=== PATIENT | female | born 1995 | race Caucasian/White ===

== ENCOUNTER 2022-02-18 05:30 | Inpatient (IN) | payer BC ==
[2022-02-18] MEDS ORDERED: Citric Acid/Sodium Citrate Solution 30 ML Cup PO ONE (06:30)
[2022-02-18] MEDS ORDERED: Metoclopramide 10 MG/2 ML SDV IVPUSH ONE (06:30)
[2022-02-18] MEDS ORDERED: Citric Acid/Sodium Citrate Solution 30 ML Cup ONE (06:50)
[2022-02-18] MEDS ORDERED: Metoclopramide 10 MG/2 ML SDV ONE (06:52)
[2022-02-18] MEDS ORDERED: Morphine PF 10 MG/10 ML SDV ONE (06:54)
[2022-02-18] MEDS ORDERED: ceFAZolin 1 GM Vial ONE (06:54)
[2022-02-18] MEDS ORDERED: Ondansetron 4 MG/2 ML SDV ONE (06:54)
[2022-02-18] MEDS ORDERED: Ketorolac 30 MG/ML SDV ONE (06:54)
[2022-02-18] MEDS ORDERED: Oxytocin 10 Units/1 ML SDV ONE ×2 (06:54→06:55)
[2022-02-18] MEDS: Lactated Ringers 1,000 ML IV SCH ×2 (06:59→07:00)
[2022-02-18] MEDS ORDERED: ceFAZolin 2 GM in Sodium Chloride 0.9% 50 ML IV ONE (07:00)
[2022-02-18] MEDS ORDERED: Bupivacaine 0.5% 30 ML SDV ONE (07:10)
[2022-02-18] MEDS ORDERED: Oxytocin/Lactated Ringers 20 UNIT/1,000 ML BAG IV SCH (07:30)
[2022-02-18] MEDS ORDERED: Lactated Ringers 1,000 ML ONE (08:22)
[2022-02-18] MEDS ORDERED: diphenhydrAMINE 50 MG/ML SDV IVPUSH PRN ×2 (08:55→10:35)
[2022-02-18] MEDS ORDERED: Ondansetron 4 MG/2 ML SDV IVPUSH PRN (08:55)
[2022-02-18] MEDS ORDERED: fentaNYL 100 MCG/2 ML SDV IVPUSH PRN (08:55)
[2022-02-18] MEDS ORDERED: Meperidine 50 MG/ML Vial IVPUSH PRN (08:55)
[2022-02-18] MEDS ORDERED: Naloxone 0.4 MG/ML SDV IVPUSH PRN (10:35)
[2022-02-18] MEDS ORDERED: Ondansetron 4 MG/2 ML SDV IV PRN (10:35)
[2022-02-18] MEDS ORDERED: ePHEDrine 50 MG/ML SDV IVPUSH PRN (10:35)
[2022-02-18] MEDS ORDERED: Dextrose 5%-Lactated Ringers 1,000 ML IV SCH (10:35)
[2022-02-18] MEDS: Ibuprofen 800 MG Tab PO SCH ×2 (14:17→22:12)
[2022-02-18] MEDS: Docusate Sodium 100 MG Cap PO SCH ×2 (14:18→23:04)
[2022-02-18] MEDS: Acetaminophen/oxyCODONE 325-5 MG Tab PO PRN ×2 (21:20→22:11)
[2022-02-19] MEDS: Acetaminophen/oxyCODONE 325-5 MG Tab PO PRN ×4 (02:23→19:56)
[2022-02-19] MEDS: Ibuprofen 800 MG Tab PO SCH ×3 (06:22→22:12)
[2022-02-19] MEDS ORDERED: Simethicone 80 MG Tab.Chew PO PRN (08:52)
[2022-02-19] MEDS ORDERED: Prenatal Multivitamin with Calcium/Folic Acid/Iron Tab PO SCH (09:00)
[2022-02-19] MEDS: Docusate Sodium 100 MG Cap PO SCH ×3 (09:11→22:12)
[2022-02-20] MEDS: Acetaminophen/oxyCODONE 325-5 MG Tab PO PRN ×3 (01:31→10:08)
[2022-02-20] MEDS: Ibuprofen 800 MG Tab PO SCH (05:48)
[2022-02-20] MEDS: Docusate Sodium 100 MG Cap PO SCH (11:52)
== END 2022-02-20 11:00 | disposition home or self-care (01) | DRG 540 ==
LOC: UNDOADMOB 05:30 → JD.OB 05:30 → INTOOBSV 05:30 → OBSVTOIN 05:30
PROVIDERS: ADMIT Obstetrics & Gynecology; ATTEND Obstetrics & Gynecology
PROC: 10D00Z1 Extraction of Products of Conception, Low, Open Approach (ICD-10-PCS; principal; 2022-02-18)
DX: O64.1XX0 Obstructed labor due to breech presentation, not applicable or unspecified (principal); Z20.822 Contact with and (suspected) exposure to COVID-19; Z3A.38 38 weeks gestation of pregnancy; Z37.0 Single live birth; Z79.899 Other long term (current) drug therapy
CPT/HCPCS: 01961; 36415; 59025; 85025; 86592; 86850; 86900; 86901; 94762; A9270-GY; J0690; J1885; J2274; J2405; J2590; J2765; J3490; J7120; J7121; U0002

== ENCOUNTER 2023-06-17 11:24 | Inpatient (IN) | payer BC ==
[2023-06-17] MEDS ORDERED: Nalbuphine 10 MG/0.5 ML Syringe IVPUSH PRN (11:33)
[2023-06-17] MEDS ORDERED: Lidocaine 1% 50 ML MDV INJECT ONE (11:33)
[2023-06-17] MEDS ORDERED: Sodium Chloride 0.9% 10 ML Syringe FLUSH PRN (11:33)
[2023-06-17] MEDS ORDERED: Lactated Ringers 1,000 ML IV SCH (11:45)
[2023-06-17] MEDS ORDERED: Oxytocin/Lactated Ringers 10 UNIT/1,000 ML BAG IV SCH ×2 (11:45)
[2023-06-17 11:54] LABS: BASOPHILS ABSOLUTE AUTO 0.01 K/mm3 (0.01-0.08); BASOPHILS PERCENT AUTO 0.1 % (0.1-1.2); EOSINOPHILS PERCENT AUTO 0 (0.7-5.8); HEMATOCRIT 34.1 % (34.1-44.9); HEMOGLOBIN 11.7 gm/dl (11.2-15.7); IMMATURE GRAN ABSOLUTE AUTO 0.02 K/mm3 (0.00-0.10); IMMATURE GRAN PERCENT AUTO 0.2 % (<=1.0); LYMPHOCYTES ABSOLUTE AUTO 1.41 K/mm3 (1.18-3.74); LYMPHOCYTES PERCENT AUTO 15.1 % (19.3-51.7); MEAN CORPUSCULAR HGB CONC 34.3 g/dl (32.2-35.5); MEAN CORPUSCULAR VOLUME 90.2 fl (79.4-94.8); MONOCYTES ABSOLUTE AUTO 0.63 K/mm3 (0.24-0.36); MONOCYTES PERCENT AUTO 6.7 % (4.7-12.5); NEUTROPHILS ABSOLUTE AUTO 7.29 K/mm3 (1.56-6.13); NEUTROPHILS PERCENT AUTO 77.9 % (34.0-71.1); PLATELET COUNT,PLT 239 K/mm3 (182-369); RED BLOOD CELL COUNT 3.78 M/mm3 (3.98-5.22); WHITE BLOOD CELL COUNT,WBC 9.36 K/mm3 (3.98-10.04)
[2023-06-18] MEDS ORDERED: Lidocaine 1% 50 ML MDV INJECT PRN (03:21)
[2023-06-18] MEDS ORDERED: Benzocaine/Menthol 20%-0.5% Spray 78 GM Cannister TOP PRN (06:21)
[2023-06-18] MEDS ORDERED: Docusate Sodium 100 MG Cap PO PRN (06:21)
[2023-06-18] MEDS ORDERED: Witch Hazel Medicated Pads 40/Jar TOP PRN (06:21)
[2023-06-18] MEDS: Ibuprofen 600 MG Tab PO PRN (15:27)
[2023-06-18] MEDS: Acetaminophen 325 MG Tab PO PRN ×2 (15:28→20:05)
[2023-06-19] MEDS: Ibuprofen 600 MG Tab PO PRN (00:05)
== END 2023-06-19 09:35 | disposition home or self-care (01) | DRG 560 ==
LOC: JD.OBCHECK 11:24 → JD.OB 11:33 → OBSVTOIN 06-18 05:22 → JD.OB 06-18 05:23
PROVIDERS: ADMIT Obstetrics & Gynecology; ATTEND Obstetrics & Gynecology
PROC: 10E0XZZ Delivery of Products of Conception, External Approach (ICD-10-PCS; principal; 2023-06-18)
PROC: 10907ZC Drainage of Amniotic Fluid, Therapeutic from Products of Conception, Via Natural or Artificial Opening (ICD-10-PCS; 2023-06-18)
PROC: 3E0R3BZ Introduction of Anesthetic Agent into Spinal Canal, Percutaneous Approach (ICD-10-PCS; 2023-06-18)
PROC: 00HU33Z Insertion of Infusion Device into Spinal Canal, Percutaneous Approach (ICD-10-PCS; 2023-06-18)
PROC: 3E033VJ Introduction of Other Hormone into Peripheral Vein, Percutaneous Approach (ICD-10-PCS; 2023-06-18)
DX: O34.211 Maternal care for low transverse scar from previous cesarean delivery (principal); O48.0 Post-term pregnancy; O69.81X0 Labor and delivery complicated by cord around neck, without compression, not applicable or unspecified; Z37.0 Single live birth; Z3A.40 40 weeks gestation of pregnancy; Z79.899 Other long term (current) drug therapy; Z86.16 Personal history of COVID-19; Z98.890 Other specified postprocedural states
CPT/HCPCS: 36415; 59025; 59409; 85025; 86592; 86850; 86900; 86901; A9270-GY; J2300; J2590; J7120

== ENCOUNTER 2024-12-20 17:17 | Emergency (ER) | payer BC ==
[2024-12-20] MEDS: Lactated Ringers 1,000 ML IV ONE (18:02)
[2024-12-20 18:09] LABS: BASOPHILS PERCENT AUTO 0.7 % (0.0-1.0); EOSINOPHILS PERCENT AUTO 0.7 % (0.0-6.0); HEMATOCRIT 31.3 % (37.0-47.0); HEMOGLOBIN 10.8 gm/dl (12.0-16.0); IMMATURE GRAN ABSOLUTE AUTO 0.03 K/mm3 (0.00-0.05); LYMPHOCYTES ABSOLUTE AUTO 0.4 K/mm3 (1.0-4.8); LYMPHOCYTES PERCENT AUTO 14.7 % (24.0-44.0); MEAN CORPUSCULAR HEMOGLOBIN 31.1 pg (28.0-32.0); MEAN CORPUSCULAR HGB CONC 34.5 g/dl (32.0-36.0); MEAN CORPUSCULAR VOLUME 90.2 fl (83.0-99.0); MEAN PLATELET VOLUME 9.5 fl (9.4-12.3); MONOCYTES ABSOLUTE AUTO 0.3 K/mm3 (0.0-0.8); MONOCYTES PERCENT AUTO 8.9 % (0.0-8.0); NEUTROPHILS ABSOLUTE AUTO 2.2 K/mm3 (1.8-7.7); PLATELET COUNT,PLT 231 K/mm3 (150-400); RED BLOOD CELL COUNT 3.47 M/mm3 (4.10-5.30); WHITE BLOOD CELL COUNT,WBC 2.92 K/mm3 (3.9-11.3)
[2024-12-20 18:33] LABS: A/G RATIO 0.7 (1-2); ALBUMIN 2.7 g/dl (3.4-5.0); ANION GAP 15.7 (5-15); BILIRUBIN TOTAL 0.2 mg/dL (0.2-1.0); BUN/CREATININE RATIO 8.3 (14-18); C-REACTIVE PROTEIN 1.73 mg/dL (<0.30); CALCIUM 8.8 mg/dL (8.5-10.1); CREATININE 0.6 mg/dL (0.55-1.02); EST CRCL DRUG DOSING (CG) 113.41 mL/min; POTASSIUM,K 3.7 mEq/L (3.5-5.1); PROTEIN TOTAL,TP 6.7 g/dl (6.4-8.2)
[2024-12-20] MEDS: cefTRIAXone 2 GM in Sodium Chloride 0.9% 100 ML IV ONE (18:51)
[2024-12-20] MEDS: Sodium Chloride 0.9% 1,000 ML IV SCH (19:30)
== END 2024-12-20 20:34 | disposition home or self-care (01) ==
LOC: JD.ED 17:17
DX: O99.513 Diseases of the respiratory system complicating pregnancy, third trimester (principal); J18.9 Pneumonia, unspecified organism; O99.283 Endocrine, nutritional and metabolic diseases complicating pregnancy, third trimester; E87.1 Hypo-osmolality and hyponatremia; O99.13 Other diseases of the blood and blood-forming organs and certain disorders involving the immune mechanism complicating the puerperium; D72.819 Decreased white blood cell count, unspecified; Z79.899 Other long term (current) drug therapy; Z86.16 Personal history of COVID-19; Z3A.28 28 weeks gestation of pregnancy
CPT/HCPCS: 36415; 80053; 85025; 86140; 87428; 87651; 96361; 96365; 99284; J0696; J7030; J7120

== ENCOUNTER 2025-03-11 09:55 | Inpatient (IN) | payer BC ==
[2025-03-11] MEDS ORDERED: Sodium Chloride 0.9% 10 ML Syringe FLUSH PRN (10:20)
[2025-03-11] MEDS ORDERED: Ondansetron 4 MG/2 ML SDV IVPUSH PRN (10:20)
[2025-03-11] MEDS ORDERED: Lidocaine 1% 50 ML MDV INJECT PRN (10:20)
[2025-03-11] MEDS ORDERED: Nalbuphine 10 MG/1 ML Vial IVPUSH PRN (10:20)
[2025-03-11] MEDS ORDERED: Lactated Ringers 1,000 ML IV SCH (10:30)
[2025-03-11] MEDS ORDERED: Oxytocin/0.9 % Sodium Chloride 30 UNIT/500 ML BAG IV SCH (10:30)
[2025-03-11 10:42] LABS: BASOPHILS PERCENT AUTO 0.2 % (0.0-1.0); EOSINOPHILS ABSOLUTE AUTO 0.1 K/mm3 (0.0-0.4); EOSINOPHILS PERCENT AUTO 0.4 % (0.0-6.0); HEMOGLOBIN 12.8 gm/dl (12.0-16.0); IMMATURE GRAN PERCENT AUTO 0.8 % (0.0-0.4); LYMPHOCYTES ABSOLUTE AUTO 2.6 K/mm3 (1.0-4.8); LYMPHOCYTES PERCENT AUTO 19.8 % (24.0-44.0); MEAN CORPUSCULAR HEMOGLOBIN 30.8 pg (28.0-32.0); MEAN CORPUSCULAR HGB CONC 33.7 g/dl (32.0-36.0); MEAN CORPUSCULAR VOLUME 91.3 fl (83.0-99.0); MEAN PLATELET VOLUME 11.5 fl (9.4-12.3); MONOCYTES ABSOLUTE AUTO 0.7 K/mm3 (0.0-0.8); NEUTROPHILS ABSOLUTE AUTO 9.8 K/mm3 (1.8-7.7); NEUTROPHILS PERCENT AUTO 73.8 % (41.0-71.0); PLATELET COUNT,PLT 224 K/mm3 (150-400); RED BLOOD CELL COUNT 4.16 M/mm3 (4.10-5.30); WHITE BLOOD CELL COUNT,WBC 13.25 K/mm3 (3.9-11.3)
[2025-03-11] MEDS: Oxytocin/0.9 % Sodium Chloride 30 UNIT/500 ML BAG IV SCH (11:25)
[2025-03-11] MEDS: Tranexamic Acid 1,000 MG/10 ML Vial ONE (12:57)
[2025-03-11] MEDS: Oxytocin 10 Units/1 ML SDV ONE (12:57)
[2025-03-11 13:48] LABS: A/G RATIO 0.7 (1-2); ALANINE AMINOTRANSFERASE,ALT 20 U/L (14-59); ALBUMIN 2.9 g/dl (3.4-5.0); ALKALINE PHOSPHATASE 106 U/L (46-116); ANION GAP 19.1 (5-15); ASPARTATE AMNIOTRANSFERASE,AST 35 U/L (15-37); BILIRUBIN TOTAL 0.2 mg/dL (0.2-1.0); BLOOD UREA NITROGEN,BUN 11 mg/dL (7-18); BUN/CREATININE RATIO 15.7 (14-18); CALCIUM 9.3 mg/dL (8.5-10.1); CARBON DIOXIDE,CO2 16 mEq/L (21-32); CHLORIDE,CL 105 mEq/L (98-107); CREATININE 0.7 mg/dL (0.55-1.02); ESTIMATED GFR 119 mL/min (>60); GLUCOSE RANDOM 116 mg/dL (70-99); PROTEIN TOTAL,TP 7.1 g/dl (6.4-8.2); SODIUM,NA 136 mEq/L (136-145)
[2025-03-11 13:49] LABS: POTASSIUM,K 4.1 mEq/L (3.5-5.1)
[2025-03-11] MEDS ORDERED: Acetaminophen 325 MG Tab PO PRN (15:02)
[2025-03-11] MEDS ORDERED: Docusate Sodium 100 MG Cap PO PRN (15:02)
[2025-03-11] MEDS: Witch Hazel Medicated Pads 40/Jar TOP PRN (17:25)
[2025-03-11] MEDS: Ibuprofen 600 MG Tab PO SCH (17:25)
[2025-03-11] MEDS: Benzocaine/Menthol 20%-0.5% Spray 78 GM Cannister TOP PRN (17:26)
[2025-03-11] MEDS ORDERED: Sodium Chloride 0.9% 10 ML Syringe FLUSH SCH (21:00)
== END 2025-03-12 12:15 | disposition home or self-care (01) | DRG 560 ==
LOC: JD.OBCHECK 09:55 → JD.OB 09:56 → JD.OBCHECK 10:20 → OBSVTOIN 11:20 → JD.OB 11:21
PROVIDERS: ADMIT Obstetrics & Gynecology; ATTEND Obstetrics & Gynecology
PROC: 10E0XZZ Delivery of Products of Conception, External Approach (ICD-10-PCS; principal; 2025-03-11)
DX: O34.211 Maternal care for low transverse scar from previous cesarean delivery (principal); O66.0 Obstructed labor due to shoulder dystocia; Z3A.39 39 weeks gestation of pregnancy; Z37.0 Single live birth; Z79.899 Other long term (current) drug therapy; Z86.16 Personal history of COVID-19; Z98.890 Other specified postprocedural states
CPT/HCPCS: 36415; 59025; 59409; 80053; 85025; 86592; 86850; 86900; 86901; J7999